=== PATIENT | male | born 1990 | race Caucasian/White ===

== ENCOUNTER 2018-01-28 00:18 | Emergency (ER) | payer MEDICAID ==
[~2018-01-28] VITALS: Ht 185.4 cm; Wt 124.0 kg
[2018-01-28 00:21] VITALS: BP 139/71
[2018-01-28] MEDS ORDERED: CEFTRIAXONE 1,000 MG IM ONE (01:00)
[2018-01-28] MEDS ORDERED: CEFTRIAXONE 1,000 MG ONE (01:10)
== END 2018-01-28 01:51 | disposition home or self-care (01) ==
LOC: ED 01:45
DX: L03.115 Cellulitis of right lower limb (principal)
CPT/HCPCS: 10060; 87070; 87075; 87147; 87205; 96372; 99284; J0696

== ENCOUNTER 2018-01-28 16:36 | Emergency (ER) | payer MEDICAID ==
[~2018-01-28] VITALS: Ht 185.4 cm; Wt 120.0 kg
[2018-01-28 16:42] VITALS: BP 126/62
[2018-01-28 17:48] LABS: BASOPHILS # (AUTO) 0.02 x10^3/uL (0-0.1); BASOPHILS % (AUTO) 0 % (0-1); EOSINOPHILS # (AUTO) 0.03 x10^3/uL (0-0.4); EOSINOPHILS % (AUTO) 1 % (1-7); LYMPHOCYTES # (AUTO) 1.89 x10^3/uL (1-3.4); LYMPHOCYTES % (AUTO) 38 % (22-44); MD NO; MEAN CORPUSCULAR HEMOGLOBIN 29.6 pg (27.5-34.5); MEAN CORPUSCULAR HGB CONC 34.4 g/dL (33.2-36.2); MEAN PLATELET VOLUME 7.6 fL (7.4-10.4); MONOCYTES # (AUTO) 0.39 x10^3/uL (0.2-0.8); MONOCYTES % (AUTO) 8 % (2-9); NEUTROPHILS # (AUTO) 2.69 x10^3/uL (1.8-6.8); NEUTROPHILS % (AUTO) 54 % (42-75); PLATELET COUNT 216 x10^3/uL (130-400); RED BLOOD COUNT 5.16 x10^6/uL (4.38-5.82); RED CELL DISTRIBUTION WIDTH 13.3 % (9.4-14.8)
[2018-01-28 17:58] LABS: ALANINE AMINOTRANSFERASE 32 U/L (12-78); ALBUMIN 2.9 g/dL (3.4-5.0); ANION GAP 7 mmol/L (5-15); CALCIUM 8.3 mg/dL (8.5-10.1); CHLORIDE 106 mmol/L (98-107); CREATININE 1.01 mg/dL (0.7-1.3)
[2018-01-28 18:00] LABS: ALKALINE PHOSPHATASE 67 U/L (45-117); BILIRUBIN,TOTAL 0.6 mg/dL (0.2-1.0); TOTAL PROTEIN 6.5 g/dL (6.4-8.2)
== END 2018-01-28 18:35 | disposition home or self-care (01) ==
LOC: ED 17:45
DX: L02.611 Cutaneous abscess of right foot (principal)
CPT/HCPCS: 36415; 80053; 85025; 87040; 99285

== ENCOUNTER 2018-02-18 23:45 | Emergency (ER) | payer MEDICAID ==
[~2018-02-18] VITALS: Ht 185.4 cm; Wt 125.0 kg
[2018-02-18 23:47] VITALS: BP 136/70
== END 2018-02-19 02:03 | disposition home or self-care (01) ==
LOC: ED 02-19 00:38
DX: G89.11 Acute pain due to trauma (principal); M25.512 Pain in left shoulder; G89.29 Other chronic pain; M54.9 Dorsalgia, unspecified; V19.9XXA Pedal cyclist (driver) (passenger) injured in unspecified traffic accident, initial encounter; Y93.89 Activity, other specified; Y99.8 Other external cause status; Y92.410 Unspecified street and highway as the place of occurrence of the external cause
CPT/HCPCS: 99284

== ENCOUNTER 2018-02-23 02:19 | Emergency (ER) | payer MEDICAID ==
[~2018-02-23] VITALS: Ht 182.9 cm; Wt 124.4 kg
[2018-02-23 02:21] VITALS: BP 120/76
== END 2018-02-23 03:13 | disposition home or self-care (01) ==
LOC: ED 03:00
DX: L03.115 Cellulitis of right lower limb (principal); L02.611 Cutaneous abscess of right foot
CPT/HCPCS: 99283

== ENCOUNTER 2018-03-01 02:19 | Emergency (ER) | payer MEDICAID ==
[~2018-03-01] VITALS: Ht 185.4 cm; Wt 124.0 kg
[2018-03-01 02:23] VITALS: BP 118/71
[2018-03-01] MEDS ORDERED: BACITRACIN ZINC OINT 500U/GM, 0.9 GM ONE (03:10)
== END 2018-03-01 03:35 | disposition home or self-care (01) ==
LOC: ED 03:07
DX: T21.12XA Burn of first degree of abdominal wall, initial encounter (principal); T22.121A Burn of first degree of right elbow, initial encounter; M54.9 Dorsalgia, unspecified; G89.29 Other chronic pain; X11.8XXA Contact with other hot tap-water, initial encounter; Y93.89 Activity, other specified; Y99.8 Other external cause status; Y92.89 Other specified places as the place of occurrence of the external cause
CPT/HCPCS: 16000; 99284

== ENCOUNTER 2018-04-25 00:13 | Emergency (ER) | payer SELFPAY ==
[~2018-04-25] VITALS: Ht 185.4 cm; Wt 128.2 kg
[2018-04-25 00:15] VITALS: BP 122/79
[2018-04-25] MEDS ORDERED: DEXAMETHASONE 4 MG TABLET ONE (00:39)
[2018-04-25] MEDS ORDERED: DEXAMETHASONE 4 MG TABLET PO ONE (01:00)
== END 2018-04-25 00:51 | disposition home or self-care (01) ==
LOC: ED 00:46
DX: R22.9 Localized swelling, mass and lump, unspecified (principal)
CPT/HCPCS: 99282

== ENCOUNTER 2018-05-29 18:22 | Emergency (ER) | payer MEDICAID, OTHER | END 2018-05-29 19:11 | disposition left against medical advice (07) | LOC: ED 19:05 | DX: R05 Cough (principal); R06.02 Shortness of breath; R11.10 Vomiting, unspecified; R07.0 Pain in throat; Z53.21 Procedure and treatment not carried out due to patient leaving prior to being seen by health care provider ==

== ENCOUNTER 2018-06-21 23:13 | Emergency (ER) | payer MEDICAID ==
[~2018-06-21] VITALS: Ht 185.4 cm; Wt 133.6 kg
[2018-06-21 23:59] LABS: BASOPHILS # (AUTO) 0.04 x10^3/uL (0-0.1); BASOPHILS % (AUTO) 1 % (0-1); EOSINOPHILS # (AUTO) 0.09 x10^3/uL (0-0.4); EOSINOPHILS % (AUTO) 2 % (1-7); LYMPHOCYTES # (AUTO) 2.43 x10^3/uL (1-3.4); LYMPHOCYTES % (AUTO) 38 % (22-44); MD NO; MEAN CORPUSCULAR HEMOGLOBIN 29.2 pg (27.5-34.5); MEAN CORPUSCULAR HGB CONC 34.6 g/dL (33.2-36.2); MEAN CORPUSCULAR VOLUME 84.6 fL (81-97); MEAN PLATELET VOLUME 7.3 fL (7.4-10.4); MONOCYTES # (AUTO) 0.49 x10^3/uL (0.2-0.8); MONOCYTES % (AUTO) 8 % (2-9); NEUTROPHILS # (AUTO) 3.36 x10^3/uL (1.8-6.8); NEUTROPHILS % (AUTO) 52 % (42-75); PLATELET COUNT 262 x10^3/uL (130-400); RED BLOOD COUNT 5.19 x10^6/uL (4.38-5.82); RED CELL DISTRIBUTION WIDTH 12.7 % (9.4-14.8)
[2018-06-22 00:05] LABS: ALBUMIN 3.1 g/dL (3.4-5.0); ANION GAP 9 mmol/L (5-15); CALCIUM 7.9 mg/dL (8.5-10.1); CHLORIDE 110 mmol/L (98-107); CREATININE 0.99 mg/dL (0.7-1.3)
[2018-06-22] MEDS ORDERED: MECLIZINE CHEWABLE 25 MG TAB ONE (00:12)
[2018-06-22] MEDS ORDERED: MECLIZINE CHEWABLE 25 MG TAB PO ONE (00:30)
[2018-06-22 01:00] VITALS: BP 114/66
== END 2018-06-22 01:02 | disposition home or self-care (01) ==
LOC: ED 23:58
DX: R42 Dizziness and giddiness (principal)
CPT/HCPCS: 36415; 80048; 82040; 85025; 93005; 99284

== ENCOUNTER 2018-07-23 01:18 | Emergency (ER) | payer MEDICAID ==
[~2018-07-23] VITALS: Ht 185.4 cm; Wt 130.0 kg
[2018-07-23 02:34] VITALS: BP 118/70
== END 2018-07-23 02:43 | disposition home or self-care (01) ==
LOC: ED 01:46
DX: B35.3 Tinea pedis (principal); G89.29 Other chronic pain
CPT/HCPCS: 99282

== ENCOUNTER 2018-09-08 17:39 | Emergency (ER) | payer MEDICAID ==
[~2018-09-08] VITALS: Ht 185.4 cm; Wt 133.7 kg
[2018-09-08 18:28] VITALS: BP 129/70
== END 2018-09-08 19:46 | disposition home or self-care (01) ==
LOC: ED 19:39
DX: L03.115 Cellulitis of right lower limb (principal); M79.671 Pain in right foot
CPT/HCPCS: 82962; 99283

== ENCOUNTER 2019-01-19 10:30 | Emergency (ER) | payer MEDICAID, OTHER ==
[~2019-01-19] VITALS: Ht 185.4 cm; Wt 132.0 kg
[2019-01-19 10:37] VITALS: BP 123/72
--- NOTE | 2019-01-19 10:59 | NUR ---
REPORT RECEIVED FROM JACEK FU. ASSUMED CARE OF PT.
[2019-01-19] MEDS ORDERED: LIDOCAINE-MPF 1%, 5ML INFIL ONE (11:30)
[2019-01-19] MEDS ORDERED: LIDOCAINE-MPF 1%, 5ML ONE (11:34)
[2019-01-19] MEDS ORDERED: NEOSPORIN OINT. PKT 1 PACKET ONE (12:12)
== END 2019-01-19 12:21 | disposition home or self-care (01) ==
LOC: ED 12:05
DX: S61.411A Laceration without foreign body of right hand, initial encounter (principal); X50.0XXA Overexertion from strenuous movement or load, initial encounter; Y93.89 Activity, other specified; Y92.69 Other specified industrial and construction area as the place of occurrence of the external cause; Y99.0 Civilian activity done for income or pay
CPT/HCPCS: 12041; 99284

== ENCOUNTER 2019-06-06 18:12 | Emergency (ER) | payer MEDICAID ==
[~2019-06-06] VITALS: Ht 185.4 cm; Wt 129.0 kg
[2019-06-06 18:55] VITALS: BP 123/72
--- NOTE | 2019-06-06 19:14 | NUR ---
priest: Pt ambulated independently to ED room 33 from [facility] in [facility] at this time.
--- NOTE | 2019-06-06 19:17 | NUR ---
PT TO ROOM WITH A STEADY GAIT. PT GIVEN GOWN AND REFUSED TO CHANGE INTO IT. STATES HE HAS VULNERABILITY ISSUES AND IF YOU'RE GOING TO MAKE HIM CHANGE WE ARE JUST GOING TO GO TO A DIFFERENT HOSPITAL.
[2019-06-06] MEDS ORDERED: CLINDAMYCIN 300 MG CAPSULE PO ONE (20:30)
[2019-06-06] MEDS ORDERED: CLINDAMYCIN 300 MG CAPSULE ONE (20:37)
[2019-06-06 20:45] LABS: BASOPHILS # (AUTO) 0.06 x10^3/uL (0-0.1); BASOPHILS % (AUTO) 1 % (0-1); EOSINOPHILS # (AUTO) 0.08 x10^3/uL (0-0.4); EOSINOPHILS % (AUTO) 1 % (1-7); LYMPHOCYTES # (AUTO) 1.72 x10^3/uL (1-3.4); LYMPHOCYTES % (AUTO) 16 % (22-44); MD NO; MEAN CORPUSCULAR HEMOGLOBIN 28.8 pg (27.5-34.5); MEAN CORPUSCULAR HGB CONC 33.3 g/dL (33.2-36.2); MEAN CORPUSCULAR VOLUME 86.5 fL (81-97); MEAN PLATELET VOLUME 8.1 fL (7.4-10.4); MONOCYTES # (AUTO) 0.54 x10^3/uL (0.2-0.8); MONOCYTES % (AUTO) 5 % (2-9); NEUTROPHILS # (AUTO) 8.26 x10^3/uL (1.8-6.8); NEUTROPHILS % (AUTO) 78 % (42-75); PLATELET COUNT 264 x10^3/uL (130-400); RED BLOOD COUNT 5.07 x10^6/uL (4.38-5.82)
--- NOTE | 2019-06-06 20:46 | NUR ---
IV ACCESS INITIATED. LABS DRAWN AND WOUND CULTURE INITIATED AND WALKED TO LAB. PT DENIES ANY NEED AT THIS TIME.
[2019-06-06 21:13] LABS: ALANINE AMINOTRANSFERASE 29 U/L (12-78); ALBUMIN 3.1 g/dL (3.4-5.0); ANION GAP 4 mmol/L (5-15); CALCIUM 8.7 mg/dL (8.5-10.1); CHLORIDE 106 mmol/L (98-107); CREATININE 0.97 mg/dL (0.7-1.3)
[2019-06-06 21:16] LABS: ALKALINE PHOSPHATASE 68 U/L (45-117); BILIRUBIN,TOTAL 1.4 mg/dL (0.2-1.0); TOTAL PROTEIN 6.8 g/dL (6.4-8.2)
== END 2019-06-06 21:53 | disposition home or self-care (01) ==
LOC: ED 20:19
DX: L03.116 Cellulitis of left lower limb (principal); E87.6 Hypokalemia; F17.210 Nicotine dependence, cigarettes, uncomplicated; G89.29 Other chronic pain; Z72.89 Other problems related to lifestyle
CPT/HCPCS: 36415; 80053; 85025; 87040; 87070; 87077; 87186; 87205; 99284

== ENCOUNTER 2019-06-07 15:39 | Inpatient (IN) | payer MEDICAID ==
[~2019-06-07] VITALS: Ht 185.4 cm; Wt 128.4 kg
[2019-06-07] MEDS ORDERED: AMPICILLIN/SULBACTAM 3 GM in SODIUM CHLORIDE 0.9% 100 ML IV ONE (16:30)
[2019-06-07] MEDS ORDERED: SODIUM CHLORIDE 0.9% 1,000ML IVBOLUS ONE (16:30)
[2019-06-07 16:34] LABS: ALBUMIN 3.1 g/dL (3.4-5.0); ANION GAP 6 mmol/L (5-15); CALCIUM 8.7 mg/dL (8.5-10.1); CHLORIDE 107 mmol/L (98-107); CREATININE 0.91 mg/dL (0.7-1.3)
[2019-06-07 16:40] LABS: BASOPHILS # (AUTO) 0.05 x10^3/uL (0-0.1); BASOPHILS % (AUTO) 1 % (0-1); EOSINOPHILS # (AUTO) 0.15 x10^3/uL (0-0.4); EOSINOPHILS % (AUTO) 2 % (1-7); LYMPHOCYTES % (AUTO) 26 % (22-44); MD NO; MEAN CORPUSCULAR HEMOGLOBIN 28.9 pg (27.5-34.5); MEAN CORPUSCULAR VOLUME 87.6 fL (81-97); MEAN PLATELET VOLUME 7.8 fL (7.4-10.4); MONOCYTES # (AUTO) 0.59 x10^3/uL (0.2-0.8); MONOCYTES % (AUTO) 7 % (2-9); NEUTROPHILS # (AUTO) 5.41 x10^3/uL (1.8-6.8); NEUTROPHILS % (AUTO) 64 % (42-75); PLATELET COUNT 272 x10^3/uL (130-400); RED BLOOD COUNT 4.99 x10^6/uL (4.38-5.82); RED CELL DISTRIBUTION WIDTH 13.5 % (9.4-14.8)
[2019-06-07] MEDS ORDERED: ONDANSETRON 2MG/ML, 2ML IVPush PRN (17:00)
[2019-06-07] MEDS ORDERED: VANCOMYCIN 2,300 MG in SODIUM CHLORIDE 0.9% 500 ML IV ONE (17:00)
[2019-06-07] MEDS ORDERED: VANCOMYCIN 2,200 MG in SODIUM CHLORIDE 0.9% 500 ML IV ONE (17:00)
[2019-06-07] MEDS ORDERED: VANCOMYCIN PER PHARMACY MC PRN (17:00)
[2019-06-07] MEDS ORDERED: VANCOMYCIN PER PHARMACY MC ONE (17:00)
[2019-06-07] MEDS ORDERED: ONDANSETRON ODT 4 MG PO PRN (17:00)
--- NOTE | 2019-06-07 17:02 | NUR ---
PT RESTING ON GURNEY. NADN. LEUNG.
[2019-06-07] MEDS: AMPICILLIN/SULBACTAM 3 GM in SODIUM CHLORIDE 0.9% 100 ML IV SCH ×2 (17:20→22:49)
[2019-06-07 17:44] LABS: HEMOGLOBIN A1C 4.9 % (4.2-6.3)
--- NOTE | 2019-06-07 17:48 | NUR ---
REPORT GIVEN DIANE GUERRA RN. ALL QUESTIONS ANSWERED. AWAITING PT TRANSPORT.
[2019-06-07] MEDS ORDERED: SODIUM CHLORIDE 0.9% 1,000 ML IV SCH (19:00)
[2019-06-07 19:19] VITALS: BP 131/78
[2019-06-07] MEDS ORDERED: PHARMACOKINETIC MONITORING MC PRN (19:30)
[2019-06-07] MEDS ORDERED: ENOXAPARIN 40 MG/0.4 ML SQ SCH (20:00)
[2019-06-08 01:18] VITALS: BP 147/81
[2019-06-08] MEDS ORDERED: DIPHENHYDRAMINE 25 MG CAPSULE PO PRN (04:00)
[2019-06-08] MEDS: AMPICILLIN/SULBACTAM 3 GM in SODIUM CHLORIDE 0.9% 100 ML IV SCH (04:59)
[2019-06-08] MEDS ORDERED: VANCOMYCIN 2,300 MG in SODIUM CHLORIDE 0.9% 500 ML IV SCH (05:00)
[2019-06-08] MEDS ORDERED: PANTOPRAZOLE 40 MG IV IVPush SCH (06:00)
[2019-06-08 06:05] LABS: BASOPHILS # (AUTO) 0.04 x10^3/uL (0-0.1); BASOPHILS % (AUTO) 1 % (0-1); EOSINOPHILS # (AUTO) 0.16 x10^3/uL (0-0.4); EOSINOPHILS % (AUTO) 2 % (1-7); LYMPHOCYTES # (AUTO) 1.58 x10^3/uL (1-3.4); LYMPHOCYTES % (AUTO) 24 % (22-44); MD NO; MEAN CORPUSCULAR HEMOGLOBIN 29.1 pg (27.5-34.5); MEAN CORPUSCULAR HGB CONC 33.7 g/dL (33.2-36.2); MEAN CORPUSCULAR VOLUME 86.1 fL (81-97); MEAN PLATELET VOLUME 7.8 fL (7.4-10.4); MONOCYTES # (AUTO) 0.45 x10^3/uL (0.2-0.8); MONOCYTES % (AUTO) 7 % (2-9); NEUTROPHILS # (AUTO) 4.32 x10^3/uL (1.8-6.8); NEUTROPHILS % (AUTO) 66 % (42-75); PLATELET COUNT 246 x10^3/uL (130-400); RED BLOOD COUNT 4.62 x10^6/uL (4.38-5.82); RED CELL DISTRIBUTION WIDTH 13.6 % (9.4-14.8)
[2019-06-08 06:13] LABS: ALANINE AMINOTRANSFERASE 28 U/L (12-78); ALBUMIN 2.6 g/dL (3.4-5.0); ANION GAP 6 mmol/L (5-15); CALCIUM 8.2 mg/dL (8.5-10.1); CHLORIDE 111 mmol/L (98-107); CREATININE 0.94 mg/dL (0.7-1.3)
[2019-06-08 06:15] LABS: ALKALINE PHOSPHATASE 64 U/L (45-117); BILIRUBIN,TOTAL 0.5 mg/dL (0.2-1.0); TOTAL PROTEIN 5.9 g/dL (6.4-8.2)
[2019-06-08 06:57] VITALS: BP 109/66
== END 2019-06-08 09:56 | disposition left against medical advice (07) | DRG 603 ==
LOC: ED 16:16 → EDIP 16:20 → 3N 18:14
PROVIDERS: ADMIT Internal Medicine; ATTEND Hospitalist
DX: L03.116 Cellulitis of left lower limb (principal); E88.09 Other disorders of plasma-protein metabolism, not elsewhere classified; Z72.0 Tobacco use; F43.10 Post-traumatic stress disorder, unspecified; X58.XXXA Exposure to other specified factors, initial encounter; Y93.89 Activity, other specified; Y92.89 Other specified places as the place of occurrence of the external cause; Y99.8 Other external cause status; Z53.29 Procedure and treatment not carried out because of patient's decision for other reasons
CPT/HCPCS: 36415; 80048; 80053; 82040; 83036; 83735; 84100; 85025; G0378; J0295; J1650; J3370; C9113; J7030; J7040; Q0163

== ENCOUNTER 2019-06-08 09:26 | Inpatient (IN) | payer MEDICAID ==
[~2019-06-08] VITALS: Ht 185.4 cm; Wt 135.2 kg
--- NOTE | 2019-06-08 10:01 | NUR ---
FINGERPRINT CLERK: PT TO ROOM FROM LOBBY VIA W/C
--- NOTE | 2019-06-08 10:15 | NUR ---
PT WAS ADMITTED LAST NIGHT FOR AND INFECTED WOUND ON HIS LEFT LEG. LEFT AMA THIS MORNING. IS NOW BACK BECAUSE THE WOUND IS "TOO PAINFUL". WAS STARTED ON ABX AND NEVER FINISHED THE COURSE. PT IS IN BED AWAITING DOCTOR. CALL LIGHT WITHIN REACH.
[2019-06-08] MEDS ORDERED: ACETAMINOPHEN 325 MG TABLET PO PRN (11:00)
[2019-06-08] MEDS ORDERED: VANCOMYCIN PER PHARMACY MC PRN (11:00)
[2019-06-08] MEDS ORDERED: morphine SULFATE 10 MG/ML, 1ML IVPush PRN (11:00)
[2019-06-08] MEDS ORDERED: PHARMACOKINETIC MONITORING MC PRN (12:30)
[2019-06-08] MEDS ORDERED: PHARMACOKINETIC CONSULTATION MC ONE (12:30)
[2019-06-08 12:43] VITALS: BP 125/79
[2019-06-08] MEDS: AMPICILLIN/SULBACTAM 3 GM in SODIUM CHLORIDE 0.9% 100 ML IV SCH ×2 (12:57→19:55)
[2019-06-08] MEDS: SODIUM CHLORIDE 0.9% 1,000 ML IV SCH (12:57)
[2019-06-08] MEDS: VANCOMYCIN 2,100 MG in SODIUM CHLORIDE 0.9% 500 ML IV SCH (16:02)
[2019-06-08 16:30] LABS: HCT (SEDRATE) 42.1 % (39.2-51.8)
[2019-06-08 19:07] VITALS: BP 111/68
[2019-06-09 00:51] VITALS: BP 112/72
[2019-06-09] MEDS: VANCOMYCIN 2,100 MG in SODIUM CHLORIDE 0.9% 500 ML IV SCH (01:13)
[2019-06-09] MEDS: AMPICILLIN/SULBACTAM 3 GM in SODIUM CHLORIDE 0.9% 100 ML IV SCH (03:41)
[2019-06-09 06:07] LABS: BASOPHILS # (AUTO) 0.03 x10^3/uL (0-0.1); BASOPHILS % (AUTO) 0 % (0-1); EOSINOPHILS # (AUTO) 0.12 x10^3/uL (0-0.4); EOSINOPHILS % (AUTO) 2 % (1-7); LYMPHOCYTES # (AUTO) 1.17 x10^3/uL (1-3.4); LYMPHOCYTES % (AUTO) 19 % (22-44); MD NO; MEAN CORPUSCULAR HEMOGLOBIN 28.8 pg (27.5-34.5); MEAN CORPUSCULAR HGB CONC 33.6 g/dL (33.2-36.2); MEAN CORPUSCULAR VOLUME 85.7 fL (81-97); MEAN PLATELET VOLUME 7.3 fL (7.4-10.4); MONOCYTES # (AUTO) 0.34 x10^3/uL (0.2-0.8); MONOCYTES % (AUTO) 6 % (2-9); NEUTROPHILS % (AUTO) 73 % (42-75); PLATELET COUNT 265 x10^3/uL (130-400); RED BLOOD COUNT 4.71 x10^6/uL (4.38-5.82); RED CELL DISTRIBUTION WIDTH 13.6 % (9.4-14.8)
[2019-06-09 06:18] LABS: ALBUMIN 2.6 g/dL (3.4-5.0); ANION GAP 5 mmol/L (5-15); CALCIUM 8.4 mg/dL (8.5-10.1); CHLORIDE 112 mmol/L (98-107)
[2019-06-09 06:22] LABS: ALANINE AMINOTRANSFERASE 24 U/L (12-78); ALKALINE PHOSPHATASE 58 U/L (45-117); BILIRUBIN,TOTAL 0.7 mg/dL (0.2-1.0); CREATININE 0.86 mg/dL (0.7-1.3)
[2019-06-09] MEDS: SODIUM CHLORIDE 0.9% 1,000 ML IV SCH ×2 (08:49→16:28)
[2019-06-09] MEDS: CEFAZOLIN 2,000 MG in SODIUM CHLORIDE 0.9% 50 ML IV SCH ×3 (08:49→23:59)
[2019-06-09 10:55] VITALS: BP 113/71
[2019-06-09] MEDS ORDERED: OMNIPAQUE 350 MG/ML, 100ML BOTTLE ONE (17:00)
[2019-06-09 20:30] VITALS: BP 118/75
[2019-06-10] MEDS: SODIUM CHLORIDE 0.9% 1,000 ML IV SCH (02:59)
[2019-06-10 06:48] VITALS: BP 126/81
[2019-06-10] MEDS: CEFAZOLIN 2,000 MG in SODIUM CHLORIDE 0.9% 50 ML IV SCH (08:08)
[2019-06-10] MEDS ORDERED: CEPH-368 PO (09:14)
[2019-06-10] MEDS ORDERED: ERTAPENEM 1 GM in SODIUM CHLORIDE 0.9% 50 ML IV SCH (10:00)
[2019-06-10 12:02] VITALS: BP 119/80
== END 2019-06-10 12:00 | disposition home or self-care (01) | DRG 603 ==
LOC: SUATTDRO 10:34 → ED 10:49 → EDIP 10:53 → 3N 11:37
PROVIDERS: ADMIT Internal Medicine; ATTEND Hospitalist
DX: L03.116 Cellulitis of left lower limb (principal); L97.929 Non-pressure chronic ulcer of unspecified part of left lower leg with unspecified severity; D64.9 Anemia, unspecified; E83.39 Other disorders of phosphorus metabolism; E88.09 Other disorders of plasma-protein metabolism, not elsewhere classified; F17.210 Nicotine dependence, cigarettes, uncomplicated; F43.10 Post-traumatic stress disorder, unspecified; B95.61 Methicillin susceptible Staphylococcus aureus infection as the cause of diseases classified elsewhere
CPT/HCPCS: 36415; 80053; 85025; 85651; 86140; G0378; J0295; J0690; J1335; J3370; Q9967; J7030; J7040

== ENCOUNTER → 2019-06-18 | Outpatient (CLI) | payer MEDICAID ==
[~2019-06-18] MED LIST: CEPH-368 PO
== END | disposition home or self-care (01) ==
LOC: WOUND 08:05
PROVIDERS: ATTEND Internal Medicine
DX: L03.116 Cellulitis of left lower limb (principal); Z87.891 Personal history of nicotine dependence
CPT/HCPCS: 11042; 99204

== ENCOUNTER → 2019-07-02 | Outpatient (CLI) | payer MEDICAID | END | disposition home or self-care (01) | LOC: WOUND 08:00 | PROVIDERS: ATTEND Internal Medicine | DX: L03.116 Cellulitis of left lower limb (principal); Z87.891 Personal history of nicotine dependence | CPT/HCPCS: 97597 ==

== ENCOUNTER → 2019-07-23 | Outpatient (CLI) | payer MEDICAID | END | disposition home or self-care (01) | LOC: WOUND 08:04 | PROVIDERS: ATTEND Internal Medicine | DX: L03.116 Cellulitis of left lower limb (principal); Z87.891 Personal history of nicotine dependence | CPT/HCPCS: 97597 ==

== ENCOUNTER 2019-08-06 08:06 | Outpatient (CLI) | payer MEDICAID | END 2019-08-06 23:59 | disposition home or self-care (01) | LOC: WOUND 08:06 | PROVIDERS: ATTEND Internal Medicine | DX: L03.116 Cellulitis of left lower limb (principal); Z87.891 Personal history of nicotine dependence | CPT/HCPCS: 99212 ==

== ENCOUNTER 2020-02-01 00:15 | Emergency (ER) | payer MEDICAID, OTHER ==
[~2020-02-01] VITALS: Ht 185.4 cm; Wt 133.7 kg
[2020-02-01 00:25] VITALS: BP 111/59
--- NOTE | 2020-02-01 01:36 | NUR ---
CRTTS: PT. TO ROOM FROM LOBBY AT THIS TIME. PT. VERBALLY AGRESSIVE TOWARDS STAFF STATING "THE WAITING ROOM WAS FUCKING RIDICULOUS TONIGHT". THIS RN OFFERED REASSURANCE TO PT. AND FAMILY AND ENSURED THEM THE RN WILL BE IN SHORTLY. STATED "I SURE HOPE IT'S NOT ANOTHER FUCKING HOUR AND A HALF". "IT'S USUALLY SLOW WHEN WE COME IN AT MIDNIGHT AND WE GET RIGHT BACK TO A ROOM".
--- NOTE | 2020-02-01 01:55 | NUR ---
pt d/c with d/c summary and scripts. all questions answered. pt ambulates to registration desk with steady gait accompanied by for d/c home. pt denies any other needs pertaining to this visit.
== END 2020-02-01 01:56 ==
LOC: ED 00:35
DX: L03.116 Cellulitis of left lower limb (principal)
CPT/HCPCS: 99283